=== PATIENT | male | born 1965 | race Caucasian/White ===

== ENCOUNTER 2017-04-11 01:09 | Emergency (ER) | payer SELFPAY ==
[2017-04-11 01:10] VITALS: BMI 22.8
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
[2017-04-11] MEDS ORDERED: Tetanus/Diphtheria Toxoids 0.5 ml Syringe IM ONE (02:42)
[2017-04-11 04:28] VITALS: BP 128/68; PULSE 87; RESP 20; TEMP 97.2; O2SAT 98
== END 2017-04-11 04:31 | disposition home or self-care (01) ==
LOC: C.ER 01:09
DX: S80.212A Abrasion, left knee, initial encounter (principal); S80.211A Abrasion, right knee, initial encounter; S50.312A Abrasion of left elbow, initial encounter; Y08.89XA Assault by other specified means, initial encounter

== ENCOUNTER 2018-07-03 19:39 | Observation (INO) | payer SELFPAY ==
[2018-07-03 19:39] VITALS: BMI 22.8
[2018-07-03 21:03] LABS: BASO # 0.1 K/uL (0.0-0.2); EOS % 0.2 % (0.0-4.0); HEMOGLOBIN 14.4 g/dL (12.0-18.0); LYMPH # 1.6 K/uL (1.0-4.3); MEAN CELL VOLUME 97.6 fL (80.0-94.0); MEAN CORPUSCULAR HEMOGLOBIN 34.3 pg (27.0-31.0); MEAN CORPUSCULAR HGB CONC 35.2 g/dL (33.0-37.0); MEAN PLATELET VOLUME 7.8 fL (7.2-11.7); MONO # 1.3 K/uL (0.0-0.8); MONO % 21.7 % (0.0-10.0); NEUT # 2.9 K/uL (1.8-7.0); NEUT % 50.1 % (50.0-75.0); PLATELET COUNT 165 K/uL (130-400); RED CELL DISTRIBUTION WIDTH 12.6 % (11.5-14.5); WHITE BLOOD COUNT 5.8 K/uL (4.8-10.8)
[2018-07-03 21:12] LABS: SQUAMOUS EPITHIAL < 1 /hpf (0-5); URINE BILIRUBIN NEGATIVE (NEGATIVE); URINE BLOOD NEGATIVE (NEGATIVE); URINE CLARITY Clear (Clear); URINE COLOR Yellow (YELLOW); URINE GLUCOSE (UA) NORMAL (Normal); URINE LEUKOCYTE ESTERASE NEG Leu/uL (Negative); URINE PROTEIN 1+ mg/dL (NEGATIVE)
[2018-07-03 21:23] LABS: ALB/GLOB RATIO 1.3 (1.0-2.1); ALBUMIN 4.7 g/dL (3.5-5.0); ALT/SGPT 47 U/L (21-72); AST/SGOT 91 U/L (17-59); BLOOD UREA NITROGEN 13 mg/dL (9-20); GFR NON-AFRICAN AMERICAN > 60
[2018-07-03 21:28] LABS: BARBITURATES, UR NEGATIVE (NEGATIVE); BENZODIAZEPINES, UR NEGATIVE (NEGATIVE); OPIATES, UR NEGATIVE (NEGATIVE); PHENCYCLIDINE, UR NEGATIVE (NEGATIVE)
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
[2018-07-03 21:41] LABS: LYMPHOCYTE 22 % (20-40); MONOCYTE 26 % (0-10); NEUTROPHIL 52 % (50-75); PLATELET ESTIMATE NORMAL (NORMAL); TOTAL CELLS COUNTED 100
[2018-07-03] MEDS ORDERED: Magnesium Sulfate 1 gm in D5W 2 GM/200 ML BAG IVPB ONE (22:01)
[2018-07-03] MEDS: Magnesium Sulfate 1 gm in D5W 1 GM/100 ML BAG IVPB SCH ×2 (22:03→22:21)
--- NOTE | 2018-07-03 23:09 | CP.PCM.HP ---
<Sam Benson - Last Filed: 07/03/18 23:28> History of Present Illness - History of Present Illness History of Present Illness: PGY-[address] Palencia 52 year old male with PMHx CAD s/p stents 3 years ago, depression, and alcohol abuse presents to ED requesting alcohol detox. He is not complaining of any symptoms of withdrawal at the moment, including tremors, palpitations, nausea, or vomiting. He states that he drinks about one bottle of vodka per day and his last drink was yesterday. Patient also states that today he has been experiencing some chest pain, which is sharp, non-radiating pain located at the left parasternal border. He does not recall any trauma or heavy lifting. Denies any fevers or chills. Surgeries: Coronary stent 3 years ago Medical: CAD, EtOh Abuse Allergies: none Social: Drinks 1 bottle vodka per day, last drink yesterday. Smokes 10 cigare ttes/day. Hospitalizations: Prior hospitalizations for EtOH withdrawal and CAD Family: Unknown Medications: Not taking PMD: None Present on Admission - Present on Admission Any Indicators Present on Admission: No Review of Systems - Constitutional Constitutional: absent: Chills, Fever, Weakness - EENT Eyes: absent: Blurred Vision, Loss of Vision Nose/Mouth/Throat: absent: Nasal Congestion, Dry Mouth - Cardiovascular Cardiovascular: Chest Pain. absent: Dyspnea, Leg Edema - Respiratory Respiratory: absent: Cough, Dyspnea - Gastrointestinal Gastrointestinal: absent: Abdominal Pain, Nausea, Vomiting - Genitourinary Genitourinary: absent: Dysuria, Flank Pain - Musculoskeletal Musculoskeletal: absent: Back Pain, Neck Pain - Psychiatric Psychiatric: Depression. absent: Anxiety Past Patient History - Infectious Disease Hx of Infectious Diseases: None - Past Medical History & Family History Past Medical History?: Yes - Past Social History Smoking Status: Heavy Smoker > 10 Cigarettes Daily - CARDIAC Hx Hypercholesterolemia: Yes Hx Hypertension: Yes - PULMONARY Hx Tuberculosis: No - NEUROLOGICAL Hx Seizures: No - HEENT Hx HEENT Problems: No - RENAL Hx Chronic Kidney Disease: No - ENDOCRINE/METABOLIC Hx Endocrine Disorders: No - HEMATOLOGICAL/ONCOLOGICAL Hx Human Immunodeficiency Virus (HIV): No - INTEGUMENTARY Hx Dermatological Problems: No - MUSCULOSKELETAL/RHEUMATOLOGICAL Hx Falls: No - GASTROINTESTINAL Hx Gastrointestinal Disorders: No - GENITOURINARY/GYNECOLOGICAL Hx Sexually Transmitted Disorders: No - PSYCHIATRIC Hx Depression: Yes Hx Substance Use: Yes - SURGICAL HISTORY Hx Coronary Stent: Yes - ANESTHESIA Hx Anesthesia: Yes Hx Anesthesia Reactions: No Meds Allergies/Adverse Reactions: Allergies Allergy/AdvReac Type Severity Reaction Status Date / Time No Known Allergies Allergy Verified 07/03/18 20:30 Physical Exam - Head Exam Head Exam: ATRAUMATIC, NORMAL INSPECTION - Eye Exam Eye Exam: EOMI, Normal appearance Pupil Exam: NORMAL ACCOMODATION, PERRL - ENT Exam ENT Exam: Mucous Membranes Moist - Neck Exam Neck exam: Positive for: Normal Inspection. Negative for: Tenderness - Respiratory Exam Respiratory Exam: NORMAL BREATHING PATTERN. absent: Rales, Rhonchi - Cardiovascular Exam Cardiovascular Exam: RRR, +S1, +S2 Additional comments: Chest tenderness, reproducible with palpation. - GI/Abdominal Exam GI & Abdominal Exam: Soft. absent: Distended, Tenderness - Extremities Exam Extremities exam: Positive for: normal inspection. Negative for: pedal edema, tenderness - Neurological Exam Neurological exam: Alert, CN II-XII Intact, Oriented x3 - Psychiatric Exam Psychiatric exam: Normal Affect, Normal Mood Results - Vital Signs Recent Vital Signs: Last Vital Signs Temp 98.0 F 07/03/18 20:26 Pulse 88 07/03/18 22:04 Resp 14 07/03/18 22:04 BP 112/76 07/03/18 22:04 Pulse Ox 100 07/03/18 22:10 - Labs Result Diagrams: 07/03/18 20:59 07/03/18 20:59 Labs: Laboratory Results - last 24 hr 07/03/18 07/03/18 07/03/18 20:59 20:59 20:59 WBC 5.8 RBC 4.20 L Hgb 14.4 Hct 41.0 MCV 97.6 H MCH 34.3 H MCHC 35.2 RDW 12.6 Plt Count 165 MPV 7.8 Neut % (Auto) 50.1 Lymph % (Auto) 27.0 Terrell % (Auto) 21.7 H Eos % (Auto) 0.2 Baso % (Auto) 1.0 Neut # (Auto) 2.9 Lymph # (Auto) 1.6 Terrell # (Auto) 1.3 H Eos # (Auto) 0.0 Baso # (Auto) 0.1 Neutrophils % (Manual) 52 Lymphocytes % (Manual) 22 Monocytes % (Manual) 26 H Platelet Estimate Normal RBC Morphology Normal Sodium 131 L Potassium 2.5 L* Chloride 82 L Carbon Dioxide 30 Anion Gap 22 H BUN 13 Creatinine 0.8 Est GFR ( Amer) > 60 Est GFR (Non-Af Amer) > 60 Random Glucose 168 H Calcium 10.0 Phosphorus 2.3 L Magnesium 1.3 L Total Bilirubin 1.0 AST 91 H ALT 47 Alkaline Phosphatase 144 H Troponin I Total Protein 8.4 H Albumin 4.7 Globulin 3.7 Albumin/Globulin Ratio 1.3 Urine Color Yellow Urine Clarity Clear Urine pH 6.0 Ur Specific Slayton 1.006 Urine Protein 1+ H Urine Glucose (UA) Normal Urine Ketones Negative Urine Blood Negative Urine Nitrate Negative Urine Bilirubin Negative Urine Urobilinogen 2.0 Ur Leukocyte Esterase Neg Urine WBC (Auto) 1 Urine RBC (Auto) 1 Ur Squamous Epith Cells < 1 Urine Opiates Screen Urine Methadone Screen Ur Barbiturates Screen Ur Phencyclidine Scrn Ur Amphetamines Screen U Benzodiazepines Scrn U Oth Cocaine Metabols U Cannabinoids Screen Alcohol, Quantitative 203 H 07/03/18 07/03/18 20:59 21:30 WBC RBC Hgb Hct MCV MCH MCHC RDW Plt Count MPV Neut % (Auto) Lymph % (Auto) Terrell % (Auto) Eos % (Auto) Baso % (Auto) Neut # (Auto) Lymph # (Auto) Terrell # (Auto) Eos # (Auto) Baso # (Auto) Neutrophils % (Manual) Lymphocytes % (Manual) Monocytes % (Manual) Platelet Estimate RBC Morphology Sodium Potassium Chloride Carbon Dioxide Anion Gap BUN Creatinine Est GFR ( Amer) Est GFR (Non-Af Amer) Random Glucose Calcium Phosphorus Magnesium Total Bilirubin AST ALT Alkaline Phosphatase Troponin I < 0.0120 Total Protein Albumin Globulin Albumin/Globulin Ratio Urine Color Urine Clarity Urine pH Ur Specific Slayton Urine Protein Urine Glucose (UA) Urine Ketones Urine Blood Urine Nitrate Urine Bilirubin Urine Urobilinogen Ur Leukocyte Esterase Urine WBC (Auto) Urine RBC (Auto) Ur Squamous Epith Cells Urine Opiates Screen Negative Urine Methadone Screen Negative Ur Barbiturates Screen Negative Ur Phencyclidine Scrn Negative Ur Amphetamines Screen Negative U Benzodiazepines Scrn Negative U Oth Cocaine Metabols Negative U Cannabinoids Screen Negative Alcohol, Quantitative Assessment & Plan - Assessment and Plan (Free Text) Assessment: Alcohol Withdrawal -Psych Consult (Dr. Cavanaugh, help appreciated) -Ativan 2mg prn for withdrawal symptoms Chest pain, history CAD -Initial KAYKAY negative -F/u EKGs and ROMIS 0300, 0900 -Crestor 2.5mg PO HS -ASA 81 mg PO daily Hypokalemia -10 KCl IV stat given -40 mg KCL PO daily Hypomagnesemia -2mg IVPB stat given Transaminitis -2:1 AST/ALT, likely 2/2 etOH -Continue to monitor Prophylaxis -SCDs Assessment and Plan d/w Dr. Slime Benson, PGY-1 <Carlitos Palencia - Last Filed: 07/04/18 06:05> Results - Vital Signs Recent Vital Signs: Last Vital Signs Temp 98.0 F 07/04/18 00:21 Pulse 73 07/04/18 00:21 Resp 20 07/04/18 00:21 BP 124/83 07/04/18 00:21 Pulse Ox 98 07/04/18 04:00 - Labs Result Diagrams: 07/03/18 20:59 07/03/18 20:59 Labs: Laboratory Results - last 24 hr 07/03/18 07/03/18 07/03/18 20:59 20:59 20:59 WBC 5.8 RBC 4.20 L Hgb 14.4 Hct 41.0 MCV 97.6 H MCH 34.3 H MCHC 35.2 RDW 12.6 Plt Count 165 MPV 7.8 Neut % (Auto) 50.1 Lymph % (Auto) 27.0 Terrell % (Auto) 21.7 H Eos % (Auto) 0.2 Baso % (Auto) 1.0 Neut # (Auto) 2.9 Lymph # (Auto) 1.6 Terrell # (Auto) 1.3 H Eos # (Auto) 0.0 Baso # (Auto) 0.1 Neutrophils % (Manual) 52 Lymphocytes % (Manual) 22 Monocytes % (Manual) 26 H Platelet Estimate Normal RBC Morphology Normal Sodium 131 L Potassium 2.5 L* Chloride 82 L Carbon Dioxide 30 Anion Gap 22 H BUN 13 Creatinine 0.8 Est GFR ( Amer) > 60 Est GFR (Non-Af Amer) > 60 Random Glucose 168 H Calcium 10.0 Phosphorus 2.3 L Magnesium 1.3 L Total Bilirubin 1.0 AST 91 H ALT 47 Alkaline Phosphatase 144 H Total Creatine Kinase CK-MB (Mass) Troponin I Total Protein 8.4 H Albumin 4.7 Globulin 3.7 Albumin/Globulin Ratio 1.3 Urine Color Yellow Urine Clarity Clear Urine pH 6.0 Ur Specific Slayton 1.006 Urine Protein 1+ H Urine Glucose (UA) Normal Urine Ketones Negative Urine Blood Negative Urine Nitrate Negative Urine Bilirubin Negative Urine Urobilinogen 2.0 Ur Leukocyte Esterase Neg Urine WBC (Auto) 1 Urine RBC (Auto) 1 Ur Squamous Epith Cells < 1 Urine Opiates Screen Urine Methadone Screen Ur Barbiturates Screen Ur Phencyclidine Scrn Ur Amphetamines Screen U Benzodiazepines Scrn U Oth Cocaine Metabols U Cannabinoids Screen Alcohol, Quantitative 203 H 07/03/18 07/03/18 07/04/18 20:59 21:30 03:11 WBC RBC Hgb Hct MCV MCH MCHC RDW Plt Count MPV Neut % (Auto) Lymph % (Auto) Terrell % (Auto) Eos % (Auto) Baso % (Auto) Neut # (Auto) Lymph # (Auto) Terrell # (Auto) Eos # (Auto) Baso # (Auto) Neutrophils % (Manual) Lymphocytes % (Manual) Monocytes % (Manual) Platelet Estimate RBC Morphology Sodium Potassium Chloride Carbon Dioxide Anion Gap BUN Creatinine Est GFR ( Amer) Est GFR (Non-Af Amer) Random Glucose Calcium Phosphorus Magnesium Total Bilirubin AST ALT Alkaline Phosphatase Total Creatine Kinase 57 CK-MB (Mass) < 0.22 Troponin I < 0.0120 < 0.0120 Total Protein Albumin Globulin Albumin/Globulin Ratio Urine Color Urine Clarity Urine pH Ur Specific Slay[place] Urine Protein Urine Glucose (UA) Urine Ketones Urine Blood Urine Nitrate Urine Bilirubin Urine Urobilinogen Ur Leukocyte Esterase Urine WBC (Auto) Urine RBC (Auto) Ur Squamous Epith Cells Urine Opiates Screen Negative Urine Methadone Screen Negative Ur Barbiturates Screen Negative Ur Phencyclidine Scrn Negative Ur Amphetamines Screen Negative U Benzodiazepines Scrn Negative U Oth Cocaine Metabols Negative U Cannabinoids Screen Negative Alcohol, Quantitative Assessment & Plan - Date & Time Date: 07/04/18 (I have seen and examined the patient. I agree with the findings and plan of care as documented by Dr. Benson. Patient with chest pain. ROMIx3 with EKG. Aspirin and Statin. Alcohol abuse. Consult psych for ev entual detox. CIWA protocol with Ativan. Replete potassium and magnesium. Monitor for acute changes.) Time: 06:04 Attending/Attestation - Attestation I have personally seen and examined this patient.: Yes I have fully participated in the care of the patient.: Yes I have reviewed all pertinent clinical information: Yes
[2018-07-04 00:22] VITALS: RESP 20
[2018-07-04 03:40] LABS: CK-MB < 0.22 ng/mL (0.0-3.38)
[2018-07-04 07:33] LABS: BASO # 0.1 K/uL (0.0-0.2); BASO % 1.1 % (0.0-2.0); EOS % 0.8 % (0.0-4.0); HEMOGLOBIN 12.7 g/dL (12.0-18.0); LYMPH # 1.5 K/uL (1.0-4.3); LYMPH % 32.5 % (20.0-40.0); MEAN CELL VOLUME 96.4 fL (80.0-94.0); MEAN CORPUSCULAR HEMOGLOBIN 34.8 pg (27.0-31.0); MEAN PLATELET VOLUME 8.2 fL (7.2-11.7); MONO # 1.1 K/uL (0.0-0.8); MONO % 23.2 % (0.0-10.0); NEUT # 1.9 K/uL (1.8-7.0); NEUT % 42.4 % (50.0-75.0); NRBC % 0.1 % (0.0-2.0); PLATELET COUNT 136 K/uL (130-400); RBC 3.66 Mil/uL (4.40-5.90); RED CELL DISTRIBUTION WIDTH 12.7 % (11.5-14.5); WHITE BLOOD COUNT 4.6 K/uL (4.8-10.8)
[2018-07-04 07:42] LABS: ALB/GLOB RATIO 1.2 (1.0-2.1); ALBUMIN 3.8 g/dL (3.5-5.0); ALT/SGPT 48 U/L (21-72); AST/SGOT 85 U/L (17-59); BLOOD UREA NITROGEN 11 mg/dL (9-20); CALCIUM 9.5 mg/dl (8.6-10.4); GFR NON-AFRICAN AMERICAN > 60
[2018-07-04] MEDS ORDERED: Potassium Chloride 20 mEq ER Tab PO ONE (08:00)
[2018-07-04] MEDS: Magnesium Sulfate 1 gm in D5W 1 GM/100 ML BAG IVPB SCH ×2 (08:39→09:15)
--- NOTE | 2018-07-04 09:28 | RAD ---
Date of service: 07/03/2018 HISTORY: left side chest pain COMPARISON: Portable chest 02/06/2014. TECHNIQUE: Chest PA and lateral FINDINGS: LUNGS: No active pulmonary disease. PLEURA: No significant pleural effusion identified. No pneumothorax apparent. CARDIOVASCULAR: No aortic atherosclerotic calcification present. Normal cardiac size. No pulmonary vascular congestion. OSSEOUS STRUCTURES: No significant abnormalities. VISUALIZED UPPER ABDOMEN: Mild increase in right hemidiaphragm elevation of uncertain origin. OTHER FINDINGS: None. IMPRESSION: No acute infiltrate or pleural effusion. No acute cardiovascular disease appreciated. Elevated right hemidiaphragm noted.
[2018-07-04] MEDS ORDERED: Potassium Chloride 20 mEq ER Tab PO SCH (10:00)
[2018-07-04 10:30] LABS: CK-MB < 0.22 ng/mL (0.0-3.38)
[2018-07-04 10:58] LABS: BASOPHIL 2 % (0-2); EOSINOPHIL 2 % (0-4); LYMPHOCYTE 28 % (20-40); REACTIVE LYMPHOCYTES 1 % (0-0); TOTAL CELLS COUNTED 100
[2018-07-04 10:59] LABS: MONOCYTE 21 % (0-10); NEUTROPHIL 46 % (50-75); PLATELET ESTIMATE NORMAL (NORMAL)
--- NOTE | 2018-07-04 12:30 | PCM.PSYCH ---
Initial Psychiatric Evaluation - Initial Psychiatric Evaluation Type of Admission: Voluntary Legal Status: Capacity Chief Complaint (in patient's own words): "I have pain in my chest" History of Present Illness and Precipitating Events: The patient is seen, chart reviewed and case discussed. Consultation is requested for his alcohol dependence. This is a 53-year-old male, with one child who is an adult. He is unemployed and lives with a friend. He is here for chest pain. The patient drinks 1 bottle of liquor a day for the last 20 years he says. He describes [id number] withdrawal symptoms when he stops drinking and sometimes nothing. He looks fine today. He has no seizure history or DTs. No detox or rehabilitation in the past. He denies drug use but smokes 10 cigarettes a day. When he feels depressed but not suicidal. He is also anxious. Past psych history: Depression but no admissions or suicide attempts. Family psych history: Father was an alcoholic. Medical history: As per medical chart, hypokalemia and chest pain. Current Medications: Active Medications Generic Name Dose Route Start Last Admin Trade Name Nava PRN Reason Stop Dose Admin Aspirin 81 mg 07/04/18 10:00 07/04/18 09:17 Aspirin Chewable PO 81 mg DAILY VINAYAK Administration Folic Acid 1 mg 07/04/18 10:00 07/04/18 09:17 Folic Acid PO 1 mg DAILY VINAYAK Administration Heparin Sodium (Porcine) 5,000 units 07/04/18 10:00 07/04/18 09:17 Heparin SC 5,000 units Q12 VINAYAK Administration Influenza Virus Vaccine 60 mcg 07/06/18 14:00 Fluzone Quad [id number] IM 07/06/18 14:01 .ONCE ONE Lorazepam 2 mg 07/03/18 23:11 Ativan PO Q12 PRN Symptoms of alcohol withdrawl Pneumococcal Polyvalent Vaccine 0.5 ml 07/06/18 12:00 Pneumovax 23 Vaccine IM 07/06/18 12:01 .ONCE ONE Rosuvastatin Calcium 2.5 mg 07/04/18 22:00 Crestor PO HS VINAYAK Thiamine HCl 100 mg 07/04/18 10:00 07/04/18 09:17 Vitamin B1 Tab PO 100 mg DAILY VINAYAK Administration Past Psychiatric History - Past Psychiatric History Previous Treatment History: Intensive Outpatient Pertinent Medical Hx (Current Medical&Sleep Prob, Allergies): Allergies Allergy/AdvReac Type Severity Reaction Status Date / Time No Known Allergies Allergy Verified 07/03/18 20:30 Review of Systems - Neurological Neurological: UNREMARKABLE - Psychiatric Psychiatric: Anxiety, Difficulty Concentrating. absent: Depression, Hallucinations, Homicidal Ideation, Paranoia, Suicidal Ideation Mental Status Examination - Personal Presentation Personal Presentation: Looks stated age - Affect Affect: Constricted - Reliability in Providing Information Reliability in Providing Information: Good - Speech Speech: Organized - Mood Mood: Depressed (mild), Anxious - Formal Thought Process Formal Thought Process: No Impairment - Cognitive Functions Orientation: Person, Place, Situation, Time Sensorium: Alert Attention/Concentration: Easily distracted Estimate of Intelligence: Average Judgement: Intact, as evidence by: Insight regarding need for hospitalization Memory: Recent intact, as evidence by: Ability to recall events of the day, Remote intact, as evidenced by: Abilit to recall sig. life events - Risk Risk: Withdrawal, Diminished functioning - Strength & Assets Inventory Strength & Assets Inventory: Cooperative - Limitations Limitations: Living alone DSM 5 DX - DSM 5 DSM 5 Diagnosis: Alcohol withdrawal - mild Alcohol use d/o - severe Depressive d/o - severe - Recommended/Plan of Treatment Treatment Recommendations and Plan of Treatment: Continue medications No need for standing detox as he is OK Use prn ativan Added gabapentin which helps wdw and anxiety Support and psychoeducation daily Attend groups and activities daily After care planning by SW: IOP or rehab 33 min
[2018-07-04] MEDS: Multiple Vitamins Tab PO SCH (13:29)
[2018-07-04 14:09] LABS: BLOOD UREA NITROGEN 13 mg/dL (9-20); CALCIUM 9.3 mg/dl (8.6-10.4); GFR NON-AFRICAN AMERICAN > 60
--- NOTE | 2018-07-04 18:37 | CP.PCM.PN ---
Subjective - Date & Time of Evaluation Date of Evaluation: 07/04/18 Time of Evaluation: 14:00 - Subjective Subjective: no complain,lying comfortable and watching TV no withdrawal symptoms Objective - Vital Signs/Intake and Output Vital Signs (last 24 hours): Temp Pulse Resp BP Pulse Ox 98.5 F 73 20 105/63 97 07/04/18 15:48 07/04/18 16:00 07/04/18 15:48 07/04/18 15:48 07/04/18 16:00 Intake and Output: 07/04/18 07/04/18 06:59 18:59 Intake Total 200 Balance 200 - Medications Medications: Current Medications Aspirin (Aspirin Chewable) 81 mg PO DAILY [facility] Last Admin: 07/04/18 09:17 Dose: 81 mg Folic Acid (Folic Acid) 1 mg PO DAILY [facility] Last Admin: 07/04/18 09:17 Dose: 1 mg Gabapentin (Neurontin) 100 mg PO TID [facility] Last Admin: 07/04/18 17:17 Dose: 100 mg Heparin Sodium (Porcine) (Heparin) 5,000 units SC Q12 [facility] Last Admin: 07/04/18 09:17 Dose: 5,000 units Influenza Virus Vaccine (Fluzone Quad [id number]) 60 mcg IM .ONCE ONE Stop: 07/06/18 14:01 Lorazepam (Ativan) 2 mg PO Q6H PRN PRN Reason: Symptoms of alcohol withdrawl Multivitamins (Hexavitamin) 1 tab PO DAILY [facility] Last Admin: 07/04/18 13:29 Dose: 1 tab Pneumococcal Polyvalent Vaccine (Pneumovax 23 Vaccine) 0.5 ml IM .ONCE ONE Stop: 07/06/18 12:01 Rosuvastatin Calcium (Crestor) 2.5 mg PO [facility] Thiamine HCl (Vitamin B1 Tab) 100 mg PO DAILY [facility] Last Admin: 07/04/18 09:17 Dose: 100 mg - Labs Labs: 07/04/18 07:14 07/04/18 13:42 - Constitutional Appears: Non-toxic, No Acute Distress - Head Exam Head Exam: NORMAL INSPECTION - Eye Exam Eye Exam: Normal appearance, PERRL Pupil Exam: NORMAL ACCOMODATION - ENT Exam ENT Exam: Mucous Membranes Moist - Neck Exam Neck Exam: Full ROM - Respiratory Exam Respiratory Exam: Clear to Ausculation Bilateral, NORMAL BREATHING PATTERN - Cardiovascular Exam Cardiovascular Exam: REGULAR RHYTHM - GI/Abdominal Exam GI & Abdominal Exam: Soft, Normal Bowel Sounds - Extremities Exam Extremities Exam: Full ROM - Back Exam Back Exam: NORMAL INSPECTION - Neurological Exam Neurological Exam: Awake, Oriented x3 - Psychiatric Exam Psychiatric exam: Normal Mood - Skin Skin Exam: Dry, Normal Color Assessment and Plan - Assessment and Plan (Free Text) Plan: Electrolytes imbalance/hypokalemia/hypomagnesium supplement and repeat electrolytes in am pssoble d/c to psy/home tomorrow after correct electrolytes Alcohol Withdrawal -Psych Consult (Dr. Cavanaugh, help appreciated) -Ativan 2mg prn for withdrawal symptoms Chest pain, history CAD KAYKAY negative EKGs and ROMIS 0300, 0900 Crestor 2.5mg PO HS ASA 81 mg PO daily Transaminitis 2:1 AST/ALT, likely 2/2 etOH Continue to monitor Prophylaxis SCDs
[2018-07-04] MEDS ORDERED: Rosuvastatin Calcium 2.5 mg Tab PO SCH (22:00)
[2018-07-05 08:16] LABS: BASO # 0.1 K/uL (0.0-0.2); BASO % 2.1 % (0.0-2.0); EOS # 0.1 K/uL (0.0-0.7); EOS % 1.3 % (0.0-4.0); HEMOGLOBIN 11.7 g/dL (12.0-18.0); LYMPH # 1.5 K/uL (1.0-4.3); LYMPH % 38.1 % (20.0-40.0); MEAN CORPUSCULAR HEMOGLOBIN 34.6 pg (27.0-31.0); MEAN CORPUSCULAR HGB CONC 35.3 g/dL (33.0-37.0); MONO # 0.8 K/uL (0.0-0.8); MONO % 19.8 % (0.0-10.0); NEUT # 1.5 K/uL (1.8-7.0); NEUT % 38.7 % (50.0-75.0); NRBC % 0.1 % (0.0-2.0); RBC 3.37 Mil/uL (4.40-5.90); RED CELL DISTRIBUTION WIDTH 12.7 % (11.5-14.5)
[2018-07-05 08:28] LABS: ALB/GLOB RATIO 1.3 (1.0-2.1); ALBUMIN 3.6 g/dL (3.5-5.0); ALT/SGPT 46 U/L (21-72); AST/SGOT 98 U/L (17-59); BLOOD UREA NITROGEN 15 mg/dL (9-20); CALCIUM 9.3 mg/dl (8.6-10.4); GFR NON-AFRICAN AMERICAN > 60
[2018-07-05] MEDS: Multiple Vitamins Tab PO SCH (09:26)
[2018-07-05 10:40] VITALS: BP 110/71; TEMP 97.9; O2SAT 98
--- NOTE | 2018-07-05 10:58 | CP.PCM.DIS ---
Provider - Provider Date of Admission: 07/03/18 22:08 Attending physician: Carlitos Palencia MD Consults: Psychiatry: Dr. Cavanaugh Time Spent in preparation of Discharge (in minutes): 45 Hospital Course - Lab Results Lab Results: Most Recent Lab Values WBC 4.0 K/uL (4.8-10.8) L 07/05/18 08:07 RBC 3.37 Mil/uL (4.40-5.90) L 07/05/18 08:07 Hgb 11.7 g/dL (12.0-18.0) L 07/05/18 08:07 Hct 33.1 % (35.0-51.0) L 07/05/18 08:07 MCV 98.0 fL (80.0-94.0) H 07/05/18 08:07 MCH 34.6 pg (27.0-31.0) H 07/05/18 08:07 MCHC 35.3 g/dL (33.0-37.0) 07/05/18 08:07 RDW 12.7 % (11.5-14.5) 07/05/18 08:07 Plt Count 127 K/uL (130-400) L 07/05/18 08:07 MPV 8.0 fL (7.2-11.7) 07/05/18 08:07 Neut % (Auto) 38.7 % (50.0-75.0) L 07/05/18 08:07 Lymph % (Auto) 38.1 % (20.0-40.0) 07/05/18 08:07 [place] % (Auto) 19.8 % (0.0-10.0) H 07/05/18 08:07 Eos % (Auto) 1.3 % (0.0-4.0) 07/05/18 08:07 Baso % (Auto) 2.1 % (0.0-2.0) H 07/05/18 08:07 Neut # (Auto) 1.5 K/uL (1.8-7.0) L 07/05/18 08:07 Lymph # (Auto) 1.5 K/uL (1.0-4.3) 07/05/18 08:07 [place] # (Auto) 0.8 K/uL (0.0-0.8) 07/05/18 08:07 Eos # (Auto) 0.1 K/uL (0.0-0.7) 07/05/18 08:07 Baso # (Auto) 0.1 K/uL (0.0-0.2) 07/05/18 08:07 Neutrophils % (Manual) 46 % (50-75) L 07/04/18 07:14 Lymphocytes % (Manual) 28 % (20-40) 07/04/18 07:14 Reactive Lymphs % 1 % (0-0) H 07/04/18 07:14 Monocytes % (Manual) 21 % (0-10) H 07/04/18 07:14 Eosinophils % (Manual) 2 % (0-4) 07/04/18 07:14 Basophils % (Manual) 2 % (0-2) 07/04/18 07:14 Platelet Estimate Normal (NORMAL) 07/04/18 07:14 RBC Morphology Normal 07/04/18 07:14 Sodium 132 mmol/L (132-148) 07/05/18 08:07 Potassium 3.2 mmol/L (3.6-5.2) L 07/05/18 08:07 Chloride 92 mmol/L (98-107) L 07/05/18 08:07 Carbon Dioxide 33 mmol/L (22-30) H 07/05/18 08:07 Anion Gap 10 (10-20) 07/05/18 08:07 BUN 15 mg/dL (9-20) 07/05/18 08:07 Creatinine 0.7 mg/dL (0.8-1.5) L 07/05/18 08:07 Est GFR ( Amer) > 60 07/05/18 08:07 Est GFR (Non-Af Amer) > 60 07/05/18 08:07 Random Glucose 100 mg/dL (75-110) 07/05/18 08:07 Calcium 9.3 mg/dl (8.6-10.4) 07/05/18 08:07 Phosphorus 2.3 mg/dL (2.5-4.5) L 07/03/18 20:59 Magnesium 1.6 mg/dL (1.6-2.3) 07/04/18 13:42 Total Bilirubin 0.7 mg/dL (0.2-1.3) 07/05/18 08:07 AST 98 U/L (17-59) H 07/05/18 08:07 ALT 46 U/L (21-72) 07/05/18 08:07 Alkaline Phosphatase 162 U/L (38-126) H 07/05/18 08:07 Total Creatine Kinase 53 U/L (55-170) L 07/04/18 10:00 CK-MB (Mass) < 0.22 ng/mL (0.0-3.38) 07/04/18 10:00 Troponin I < 0.0120 ng/mL (0.00-0.120) 07/04/18 10:00 Total Protein 6.5 g/dL (6.3-8.3) 07/05/18 08:07 Albumin 3.6 g/dL (3.5-5.0) 07/05/18 08:07 Globulin 2.8 gm/dL (2.2-3.9) 07/05/18 08:07 Albumin/Globulin Ratio 1.3 (1.0-2.1) 07/05/18 08:07 Urine Color Yellow (YELLOW) 07/03/18 20:59 Urine Clarity Clear (Clear) 07/03/18 20:59 Urine pH 6.0 (5.0-8.0) 07/03/18 20:59 Ur Specific [place] 1.006 (1.003-1.030) 07/03/18 20:59 Urine Protein 1+ mg/dL (NEGATIVE) H 07/03/18 20:59 Urine Glucose (UA) Normal mg/dL (Normal) 07/03/18 20:59 Urine Ketones Negative mg/dL (NEGATIVE) 07/03/18 20:59 Urine Blood Negative (NEGATIVE) 07/03/18 20:59 Urine Nitrate Negative (NEGATIVE) 07/03/18 20:59 Urine Bilirubin Negative (NEGATIVE) 07/03/18 20:59 Urine Urobilinogen 2.0 mg/dL (0.2-1.0) 07/03/18 20:59 Ur Leukocyte Esterase Neg [place]/uL (Negative) 07/03/18 20:59 Urine WBC (Auto) 1 /hpf (0-5) 07/03/18 20:59 Urine RBC (Auto) 1 /hpf (0-3) 07/03/18 20:59 Ur Squamous Epith Cells < 1 /hpf (0-5) 07/03/18 20:59 Urine Opiates Screen Negative (NEGATIVE) 07/03/18 20:59 Urine Methadone Screen Negative (NEGATIVE) 07/03/18 20:59 Ur Barbiturates Screen Negative (NEGATIVE) 07/03/18 20:59 Ur Phencyclidine Scrn Negative (NEGATIVE) 07/03/18 20:59 Ur Amphetamines Screen Negative (NEGATIVE) 07/03/18 20:59 U Benzodiazepines Scrn Negative (NEGATIVE) 07/03/18 20:59 U Oth Cocaine Metabols Negative (NEGATIVE) 07/03/18 20:59 U Cannabinoids Screen Negative (NEGATIVE) 07/03/18 20:59 Alcohol, Quantitative 203 mg/dl (0-10) H 07/03/18 20:59 - Hospital Course Hospital Course: 52 year old male with PMHx CAD s/p stents 3 years ago, depression, and alcohol abuse presents to ED requesting alcohol detox. He is not complaining of any symptoms of withdrawal at the moment, including tremors, palpitations, nausea, o r vomiting. He states that he drinks about one bottle of vodka per day and his last drink was yesterday. Patient also states that today he has been experiencing some chest pain, which is sharp, non-radiating pain located at the left parasternal border. He does not recall any trauma or heavy lifting. Denies any fevers or chills. Surgeries: Coronary stent 3 years ago Medical: CAD, EtOh Abuse Allergies: none Social: Drinks 1 bottle vodka per day, last drink yesterday. Smokes 10 cigarettes/day. Hospitalizations: Prior hospitalizations for EtOH withdrawal and CAD Family: Unknown Medications: Not taking PMD: None Hospital course: Patient was admitted for alcohol detox, electrolyte abnormality and chest pain. ACS was ruled out. EKGs and ROMis were negative x3. Patient was started on a statin and aspirin. Patient was given potassium and magnesium. ELectrolytes were monitored and stablized. Psychiatry was consulted for alcohol withdrawal and detox. Patient was seen and examined throughout hospiatl course. Patient feels well and has no complaints. He denies chest pain, dyspnea, palpitations, abdominal pain, nausea, vomiting, fevers, a/v hallucinations, tremors, and is alert and oriented x3. Patient is stable for discharge to home. This is a brief summary of the hospital course. Please see EMR for more details. Discharge Exam - Head Exam Head Exam: NORMAL INSPECTION - Eye Exam Eye Exam: EOMI, Normal appearance - ENT Exam ENT Exam: Mucous Membranes Moist - Respiratory Exam Respiratory Exam: NORMAL BREATHING PATTERN, UNREMARKABLE. absent: Rales, Rhonchi, Wheezes, Respiratory Distress - Cardiovascular Exam Cardiovascular Exam: REGULAR RHYTHM, +S1, +S2 - GI/Abdominal Exam GI & Abdominal Exam: Normal Bowel Sounds, Soft. absent: Distended, Firm, Tenderness - Extremities Exam Extremities exam: normal inspection, pedal pulses present - Neurological Exam Neurological exam: Alert, Oriented x3 - Psychiatric Exam Psychiatric exam: Normal Affect, Normal Mood - Skin Skin Exam: Dry, Normal Color, Warm Discharge Plan - Discharge Medications Prescriptions: Potassium Chloride [K-Dur 20 mEq ER Tab] 20 meq PO DAILY 5 Days #5 tab Rosuvastatin Calcium 2.5 [Crestor] 2.5 mg PO HS #30 tab - Follow Up Plan Condition: STABLE Disposition: HOME/ ROUTINE Instructions: Hypokalemia, Smoking: Not Just Harmful to Your Lungs and Heart, Quitting Smoking, Potassium Chloride, Rosuvastatin, Low Magnesium Level Additional Instructions: Patient is stable for discharge to home. Patient must continue the following medication: 1. Aspirin 81mg by mouth daily 2. Crestor 2.5mg by mouth before bed 3. Potassium 20mEq by mouth daily for 5 days. Patient must follow up with their primary doctor, or the [facility], within 1 week of discharge. If symptoms worsen or reoccur, patient should return to nearest ED. Referrals: Clinic,Med Surg [Non-Staff] -
[2018-07-05] MEDS ORDERED: Pneumococcal 23-Valent Vaccine IM ONE (12:00)
[2018-07-05] MEDS ORDERED: Potassium Chloride 20 mEq ER Tab PO ONE (12:00)
[2018-07-05] MEDS ORDERED: Influenza Vaccine 60 MCG/0.5 ML SYR (3 yr & up) IM ONE (12:00)
[2018-07-05 12:45] VITALS: PULSE 86
[2018-07-06] MEDS ORDERED: Potassium Chloride 20 mEq ER Tab PO ONE (10:24)
[2018-07-06] MEDS ORDERED: Pneumococcal 23-Valent Vaccine IM ONE (12:00)
--- NOTE | 2018-07-06 12:53 | CARD ---
APPROVED REPORT Date of service: 07/04/2018 EKG Measurement Heart [id number] <Conclusion> Normal sinus rhythm Prolonged QT Abnormal ECG
--- NOTE | 2018-07-06 12:56 | CARD ---
APPROVED REPORT Date of service: 07/04/2018 EKG Measurement Heart [id number] <Conclusion> Normal sinus rhythm Rightward axis Prolonged QT Abnormal ECG
[2018-07-06] MEDS ORDERED: Influenza Vaccine 60 MCG/0.5 ML SYR (3 yr & up) IM ONE (14:00)
--- NOTE | 2018-07-06 17:27 | CARD ---
APPROVED REPORT Date of service: 07/03/2018 EKG Measurement Heart [id number] <Conclusion> Normal sinus rhythm Normal ECG
== END 2018-07-05 15:50 | disposition home or self-care (01) ==
LOC: C.ER 19:39 → C.5S 22:08
PROVIDERS: ADMIT Family Medicine; ATTEND Family Medicine
DX: F10.230 Alcohol dependence with withdrawal, uncomplicated (principal); Y90.7 Blood alcohol level of 200-239 mg/100 ml; E83.42 Hypomagnesemia; E87.6 Hypokalemia; F17.210 Nicotine dependence, cigarettes, uncomplicated; F32.9 Major depressive disorder, single episode, unspecified; I10 Essential (primary) hypertension; I25.10 Atherosclerotic heart disease of native coronary artery without angina pectoris; Z95.5 Presence of coronary angioplasty implant and graft
CPT/HCPCS: 36415; 71046; 80048; 80053; 81001; 83735; 84100; 84484; 85025; 90674; 90732; 93005; 96365; 96366; 96372; 99285; G0008; G0009; G0378; G0480; J1644; J3475